=== PATIENT | female | born 1955 | race Caucasian/White ===

== ENCOUNTER 2017-01-09 07:07 | Day surgery (SDC) | payer MEDICARE ==
--- NOTE | 2016-11-16 01:22 | HP ---
HISTORY OF PRESENT ILLNESS: The patient is a pleasant 61-year-old woman who is having problems with back pain along with pain that is severe in her left hip which radiates to the inguinal region and anterior thigh. Back pain, she describes, is a burning pain. More recently, the pain has extended below the knee anteriorly. She said she had pain for years, but over the last 6 months has become very significant pain in the left side. The problem started after an episode of pneumonia. She rates her pain as 10 /10. She says the only way she obtains relief is by lying flat on her back. She says that during the day she frequently does a few activities and lies down intermittently throughout the day to help with her pain. She takes [place] and gabapentin. She has a history of rheumatoid arthritis as well as emphysema. She does use prednisone 25 mg per day and has done so for a considerable period. She has been reluctant to wean off of her prednisone. She has had 2 epidural steroid injections without help. She did try massage therapy as well as exercises, do physical therapy, which have not given her any benefit. PAST MEDICAL HISTORY: Arthritis, emphysema, heart murmur, rheumatoid arthritis, and thyroid disease. PAST SURGICAL HISTORY: Hysterectomy in 2013. FAMILY HISTORY: Brain tumor, cancer, diabetes, epilepsy/seizure, heart problems/disease, heart attack at an early age, and spine problems. SOCIAL HISTORY: Retired. . Denies substance abuse. Smokes 1-1/2 packs per day and has for 25 years. Does drink alcohol. ALLERGIES: No known drug allergies. CURRENT MEDICATIONS: None reported. REVIEW OF SYSTEMS: A 12-point review of systems was obtained and is noncontributory except for that mentioned above. PHYSICAL EXAMINATION: NEUROSURGERY EXAMINATION: GENERAL APPEARANCE: Alert, pleasant, no acute distress. HEAD: Normocephalic and atraumatic. SKIN: Warm and dry. MUSCULOSKELETAL: Lumbar paraspinal muscle bulk is normal, restricted range of motion of the lumbar spine, [id number] tenderness of lower lumbar spine with palpation, and normal range of motion of the lower extremities bilaterally. EXTREMITIES: No clubbing, cyanosis, or edema. NEUROLOGIC: Alert and oriented x3, normal recent and remote memory, strength 5 out of 5 in bilateral lower extremities. Sensory was intact to light touch in bilateral lower extremities except for a decrease in the left anterior thigh, reflexes were traced and symmetric in the lower extremities bilaterally, negative straight leg raising bilaterally, and slightly forward stooped gait. IMAGING REVIEWED: I reviewed a lumbar MRI scan. She has degenerative scoliosis. At L2-L3, there is a left-sided disc herniation with a foraminal disk herniation. ASSESSMENT AND PLAN: I believe the problems at L2-L3 are responsible for the majority of her pain. Ideally an instrumental lumbar fusion could be performed to deal with her scoliosis. However, in view of her prednisone use and the appearance of the MRI, I am very concerned about osteoporosis and the failure of hardware. I explained that I was going to perform microsurgery to remove the portion of the disc and decompress the root at L2-L3 on the left. I said that she should aggressively work to get off the prednisone and begin to work on improving her calcium balance and quality of her bones. I outlined the risks of surgery in this case, especially the risks of infection or failure of the surgery. She understands. She would like to go ahead. We will make the arrangements. SRAVANTHI ROBINS MD DR: NASIMA/josé JOB#: [id number] / [id number] MARSHALL
--- NOTE | 2017-01-08 14:38 | HP ---
ADMIT DATE: PREOPERATIVE HISTORY AND PHYSICAL Paolo Barnes RN, dictating for Dr. Keith Robins. DATE OF SURGERY: 01/09/2017. HISTORY OF PRESENT ILLNESS: The patient is a pleasant 61-year-old woman who is having problems with back pain along with severe pain in her left hip, which radiates into the inguinal region, in the anterior thigh. That pain she describes as a burning pain. More recently, the pain has extended below the knee anteriorly. She said she had pain for years, but over the last 6 months, she has had some very significant pain in the left side. The problem started after an episode of pneumonia. She rates her pain as a 10/10. She says the only way she can obtain relief is by lying flat on her back. She says during the day, she frequently does a few activities and lies down intermittently to help with her pain. She takes [place] and gabapentin. She has a history of rheumatoid arthritis as well as emphysema. She does use prednisone ____ mg per day and has done so for a considerable period. She is reluctant to wean off of her prednisone. She has had 2 epidural steroid injections without help. She did try massage therapy as well as exercise through physical therapy, which has not given her any benefit. PAST MEDICAL HISTORY: Arthritis, emphysema, heart murmur, RA, thyroid disease. PAST SURGICAL HISTORY: Hysterectomy in 2013. FAMILY HISTORY: Brain tumor, cancer, diabetes, epilepsy/seizure, heart problems/disease, heart attack in early age, spine problems. SOCIAL HISTORY: Retired. . Denies substance abuse. Smokes about one and a half packs per day and has for 25 years. Does not drink alcohol. ALLERGIES: No known drug allergies. CURRENT MEDICATIONS: Albuterol, alprazolam, atorvastatin, calcium, colestipol, diazepam, dicyclomine, fenofibrate, Flexeril, fluconazole, gabapentin, [place], pantoprazole, sodium, Paxil, prednisone, Symbicort, Synthroid, Ventolin HFA, vitamin B12, vitamin D3, Zocor, folic acid, hydroxychloroquine, and sulfasalazine. REVIEW OF SYSTEMS: A 12-point review of systems was obtained and is noncontributory except for that mentioned above. PHYSICAL EXAMINATION: NEUROSURGERY EXAMINATION: GENERAL APPEARANCE: Alert, pleasant, in no acute distress. HEAD: Normocephalic and atraumatic. SKIN: Warm and dry. MUSCULOSKELETAL: Lumbar paraspinal muscle bulk is normal, restricted range of motion of the lumbar spine, [id number] tenderness of the lower lumbar spine with palpation, normal range of motion of the lower extremities bilaterally. EXTREMITIES: No clubbing, cyanosis, or edema. NEUROLOGIC: Alert and oriented x 3, normal recent and remote memory, strength 5/5 in bilateral lower extremities, sensory is intact to light touch in the bilateral lower extremities except for decrease in the left anterior thigh, reflexes are trace and symmetric in the lower extremities bilaterally, negative straight leg raising bilaterally, and slightly forward stooped gait. IMAGING: Reviewed. I reviewed a lumbar MRI scan. She has degenerative scoliosis. At L2-L3, there is left-sided herniated disk along with foraminal disk herniation. ASSESSMENT: Intervertebral disk disorders with radiculopathy, lumbar region. PLAN: I believe the problems at L2-L3 are responsible for the majority of her pain. Ideally, an instrumented lumbar fusion could be performed to deal with her scoliosis; however, in view of her prednisone use and the appearance of the MRI, I am very concerned about osteoporosis and failure of hardware. I explained that I was willing to perform microsurgery to remove the portion of the disk and decompress the root itself at L3-L4 on the left. I said she should aggressively work to get off the prednisone and began working on improving her calcium balance in the quality of her bone. I outlined the risks of surgery in this case, especially the risk of infection, nerve root injury, or failure of the surgery. She understands. She would like to go ahead. We will make the arrangements. KEITH ROBINS MD DR: NASIMA/josé JOB#: [id number] / [id number]
[~2017-01-09 07:07] MED LIST: ALPR1TAB6 PO; ASPI81TA2 PO; ATOR40TA59 PO; BACITRACIN 50,000 UNIT in IV NORMAL SALINE 1000ML BAG 1,000 ML IRR ONE; BUPIVAC MPF-EPI 0.5%-1:200000 30 ML VIAL. ONE; CHOL10003 PO; CLOP75TA PO; COLE1TAB2 PO; CYAN100031 PO; CYAN250012 PO; FENO145T2 PO; FENTANYL PF 100 MCG/2 ML VIAL. IV PRN; GABA-585 PO; GELATIN SPONGE SIZE 100. ONE; HYDR-2672 PO; IPRA4AER IH; IV RINGERS,LACTATED 1000ML 1,000 ML IV SCH; KETOROLAC 60 MG/2 ML INJ FOR OR. ONE; LEVO75TA5 PO; LIDOCAINE 1% 1 ML SYRINGE. ID PRN; LISI10TA2 PO; ONDANSETRON PF 4 MG/2 ML VIAL. IV PRN; PARO20TA3 PO; PRED-220 PO; PROAIR HFA8.5 GM INH; PROCHLORPERAZINE 10 MG/2 ML VIAL. IV PRN; THROMBIN TOPICAL 20,000 UNIT SPRAY.SYRN KIT TP ONE; VANCOMYCIN 1GM IVPB FOR OMNI 250 ML IV PRN
--- NOTE | 2017-01-09 08:00 | EKG ---
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
[2017-01-09] MEDS ORDERED: ROCURONIUM 50 MG/5 ML VIAL. ONE (08:20)
[2017-01-09] MEDS ORDERED: FENTANYL PF 100 MCG/2 ML VIAL. ONE (08:20)
[2017-01-09] MEDS ORDERED: LIDOCAINE 2% 100 MG/5 ML SYRINGE. ONE (08:20)
[2017-01-09] MEDS ORDERED: PROPOFOL 50 ML IV ONE ×2 (08:20→10:48)
[2017-01-09] MEDS ORDERED: REMIFENTANIL 2 MG VIAL. IV ONE (08:20)
[2017-01-09] MEDS ORDERED: PROPOFOL 20 ML IV ONE (08:20)
[2017-01-09] MEDS ORDERED: MIDAZOLAM HCL/PF 2 MG/2 ML VIAL. ONE (08:20)
[2017-01-09] MEDS ORDERED: DEXAMETHASONE SOD PHOS 20 MG/5 ML VIAL. ONE (08:20)
[2017-01-09] MEDS ORDERED: PHENYLEPHRINE 10 MG/ML VIAL. ONE (08:24)
--- NOTE | 2017-01-09 08:51 | RAD ---
Chest, 2 views, 01/09/2017: History: Preop evaluation for lumbar spine surgery No previous chest radiographs are available at this time for comparison purposes. The heart size and pulmonary vascularity are normal. There is a calcified granuloma in the left base. There are a few scattered parenchymal scars. No acute infiltrate is seen. There is no evidence of pleural fluid. There is a severe vertebral compression fracture at approximately the T8 level. The compressed vertebral body is sclerotic suggesting that this may be old. There are scattered spurs in the thoracic spine. IMPRESSION: 1. No acute cardiopulmonary abnormality is detected. 2. Severe lower thoracic vertebral compression fracture.
[2017-01-09] MEDS ORDERED: HYDROCORTISONE SOD SUCC/PF 100 MG/2 ML VIAL. ONE (09:02)
[2017-01-09] MEDS ORDERED: EPHEDRINE PF IN SALINE 50 MG/5 ML DISP.SYRIN. IV ONE (09:34)
[2017-01-09] MEDS ORDERED: DESFLURANE > 120 MINUTES IH ONE (10:37)
[2017-01-09] MEDS ORDERED: GLYCOPYRROLATE 1 MG/5 ML VIAL. ONE (10:40)
[2017-01-09] MEDS ORDERED: NEOSTIGMINE METHYLSULFATE 5 MG/5 ML SYRINGE. ONE (10:40)
[2017-01-09] MEDS ORDERED: ONDANSETRON PF 4 MG/2 ML VIAL. ONE (10:40)
--- NOTE | 2017-01-09 11:02 | DISCH ---
DISCHARGE INSTRUCTIONS Condition on Discharge Condition on Discharge: Stable Activity After Discharge Activity Instructions for Disc: Activity as tolerated, Avoid exertion Other activity instructions: no driving for a week Lifting Instructions after Dis: No heavy lifting Diet after Discharge Additional Diet Restrictions: resume home diet Wound Incision Care Wound/Incision Care: Ice to area for comfort Other wound/incision instructi: may remove dressing in 48 hrs if dry then may shower, no soaking Contacting the [facility] after DC Call your doctor for: Concerns you may have Follow-Up Follow up with: Dr. Robins's nurse in 2 weeks [phone] SRAVANTHI ROBINS MD Jan 09, 2017 11:02
[2017-01-09] MEDS: FENTANYL PF 100 MCG/2 ML VIAL. IV PRN ×4 (11:05→11:58)
[2017-01-09] MEDS ORDERED: METH-38 PO (11:06)
[2017-01-09] MEDS ORDERED: DOCU-27 PO (11:06)
[2017-01-09] MEDS ORDERED: HYDROCODONE/APAP 10/325 TABLET. PO PRN (12:00)
[2017-01-09 13:00] VITALS: BP 138/58
--- NOTE | 2017-01-09 15:00 | OP ---
DATE OF SURGERY: 01/09/2017 PREOPERATIVE DIAGNOSES: Lumbar spinal stenosis and herniated lumbar disk, L2-L3 left, with left lumbar radiculopathy. POSTOPERATIVE DIAGNOSIS: Lumbar spinal stenosis and herniated lumbar disk, L2-L3 left, with left lumbar radiculopathy. OPERATION PERFORMED: Hemilaminotomy and microdiskectomy L2-L3, left. The operation was done with EMG monitoring, fluoroscopy, microscopic dissection. SENIOR WEALTH ADVISOR: MALISSA Berrios, assisted with the surgery. She assisted with the exposure, the microdiskectomy as well as the closure. OPERATIVE INDICATIONS: The patient is a pleasant 61-year-old woman who developed intractable back and left leg symptoms referable to a disk and stenosis at L2-L3 on the left. She failed conservative measures, and I recommended lumbar microsurgery. I spoke with her about the surgery and the risks involved and she wished to go ahead. She did have significant degenerative scoliosis which I explained limited the amount of bone removal I could perform. She did have foraminal narrowing and I told her that I would try to as best I could and directly open the neural foramen to see if we could help her. She did have problems with osteoporosis and some health issues, which I felt made an instrumented fusion in the undesirable direction. I explained the surgery. I explained the risks. I explained the technique and the expected postoperative course and she wished to go ahead. DESCRIPTION OF PROCEDURE: Following general endotracheal anesthesia, the patient was positioned prone on the Hema table with her lumbar regions prepped and draped in standard fashion. ALLYN hose and AV impulse boots were applied for DVT prophylaxis. The microscope was draped. Fluoroscopy was draped and brought into field. Monitoring was established. Vancomycin 1 g was given prior to surgery. Using fluoroscopic guidance, an incision was made over the L2-L3 interspace. I dissected down to skin and subcutaneous tissue and reflected the paraspinal muscles and placed a Hamilton micro disk retractor. I brought in the microscope and the remainder of the surgery was done with the microscope using microscopic technique. I burred down a hemilaminotomy and unroofed the very medial portion of the neural foramen, which was extremely narrowed. I did perform a partial foraminotomy. I gently retracted the root and dura medially with a micro nerve root retractor. There was significant disk bulging and I incised the annulus and I performed a diskectomy with pituitary rongeurs. As I worked, the region became very well decompressed. I then began to work laterally and tease back and remove disk material from the neural foramen and as I worked in this location, again the region became very well decompressed. I then worked to the midline and removed fatty tissue from a degree of epidural lipomatosis which occupied the posterior aspect of the canal beneath the spinous process. This material was teased back and removed and the entire region was very well decompressed. I did use small amounts of bone wax as well as bipolar cautery where necessary. Hemostasis, however, was excellent throughout the entire case. I irrigated copiously with antibiotic solution and I closed the wound in layers with absorbable suture. The skin was closed with a 4-0 subcuticular stitch. Operation went very well. I was quite pleased with the surgery. SRAVANTHI ROBINS MD DR: NASIMA/josé JOB#: [id number] / [id number]
== END 2017-01-09 13:14 | disposition home or self-care (01) ==
LOC: SURG 07:07
PROVIDERS: ATTEND Neurological Surgery
DX: M51.16 Intervertebral disc disorders with radiculopathy, lumbar region (principal); M48.06 Spinal stenosis, lumbar region; E78.00 Pure hypercholesterolemia, unspecified; I10 Essential (primary) hypertension; J44.9 Chronic obstructive pulmonary disease, unspecified; K21.9 Gastro-esophageal reflux disease without esophagitis; M19.90 Unspecified osteoarthritis, unspecified site; E05.90 Thyrotoxicosis, unspecified without thyrotoxic crisis or storm; E03.9 Hypothyroidism, unspecified; F41.9 Anxiety disorder, unspecified; F32.9 Major depressive disorder, single episode, unspecified; Z72.89 Other problems related to lifestyle; Z98.41 Cataract extraction status, right eye; Z98.42 Cataract extraction status, left eye
CPT/HCPCS: 63030; 71020; 76000; 93005; 97161; J0780; J1100; J1720; J1885; J2250; J2405; J2704; J2710; J3010; J3370; J3490; J7030; J7120